=== PATIENT | female | born 1995 | race Caucasian/White ===

== ENCOUNTER 2023-11-12 16:36 | Emergency (ER) | payer OTHER, SELFPAY ==
--- NOTE | 2023-11-12 16:40 | ED_ITS ---
HPI - General Adult General Chief complaint: Fall Stated complaint: Slip and Fall Time Seen by Provider: 11/12/23 16:37 Source: patient and EMS Mode of arrival: EMS Limitations: no limitations History of Present Illness HPI narrative: 28-year-old female here for evaluation of a left ankle injury. States that she was in an area in a dog kennel and slipped and fell and twisted hurting her left ankle. EMS was called. Has been unable to ambulate since the event. Obvious deformity. Was placed in a air splint. Was given pain medicine prior to arrival. Related Data Previous Rx's Medication Instructions Recorded hydrocodone 5 mg-acetaminophen 325 1 tab PO Q4-6H PRN pain #20 tabs 11/12/23 mg tablet hydrocodone 5 mg-acetaminophen 325 1 tab PO Q6H PRN pain #20 tabs 11/12/23 mg tablet Allergies Allergy/AdvReac Type Severity Reaction Status Date / Time amoxicillin Allergy Anaphylaxis Verified 11/12/23 16:48 azithromycin [From Zithromax] Allergy Anaphylaxis Verified 11/12/23 16:48 clavulanic acid Allergy Anaphylaxis Verified 11/12/23 16:49 [From Augmentin] Penicillins Allergy Anaphylaxis Verified 11/12/23 16:48 Review of Systems Musculoskeletal Musculoskeletal: Reports system reviewed and no additional complaints, except as documented Integumentary/Breasts Skin/Breast: Reports system reviewed and no additional complaints, except as documented Neurologic Neurologic: Reports system reviewed and no additional complaints, except as documented Patient History Social History Smoking Status: Former smoker Exam Initial Vital Signs Initial Vital Signs: Vital Signs Temperature 98.3 F 11/12/23 16:42 Pulse Rate 75 11/12/23 16:42 Respiratory Rate 18 11/12/23 16:42 Blood Pressure 139/100 H 11/12/23 16:42 Pulse Oximetry 99 11/12/23 16:42 Oxygen Delivery Method Room Air 11/12/23 16:42 Cardio Pulses: dorsalis pedis present on the left Skin Other: Small abrasion on the medial aspect of the medial malleolus Neuro Sensory Exam: no sensory deficits noted Extrem Other: Obvious deformity to the left ankle. No proximal fibula tenderness. No calf tenderness. No other injuries from the event. Procedures Orthopedic Splinting/Casting Injury #1: Side: left Lower Extremity Injury Location: ankle Lower Extremity Immobilizer: posterior splint and stirrup splint Other Orthopedic Equipment: crutches Post splinting neuro exam: no change Post splinting vascular exam: no change Placed by: Provider Course Orders Ordered: ED Orders 11/12/23 16:42 XR ankle LT min 3V Stat 11/12/23 17:07 XR ankle LT min 3V Stat Vital Signs Vital signs: Vital Signs - 8 hr 11/12/23 16:42 11/12/23 16:44 11/12/23 17:00 Temperature 98.3 F Pulse Rate 75 74 91 H Respiratory Rate 18 Blood Pressure 139/100 H Pulse Oximetry 99 100 100 Oxygen Delivery Method Room Air 11/12/23 17:01 11/12/23 17:01 Temperature Pulse Rate 90 Respiratory Rate Blood Pressure 174/83 H Pulse Oximetry 100 Oxygen Delivery Method Medical Decision Making Imaging Data Extremity x-ray #1: Radiologist's Impression: PROCEDURE: XR ANKLE LT MIN 3V INDICATIONS: fracture TECHNIQUE: 3 views of the ankle were acquired. COMPARISON: None. FINDINGS: Bones: There is a mildly displaced fracture of the distal fibular shaft. There is widening of the syndesmosis. There is dislocation of the talus posteriorly and laterally in relation to the tibial plafond. No leonor talar dome fracture is seen. There is a prominently displaced avulsion of the distal medial malleolar tip. No definite posterior malleolar fracture is seen. A plantar calcaneal spur is seen. Soft tissues: No tibiotalar joint effusion. Achilles tendon appears normal. IMPRESSION: Ankle dislocation, with the talar dome subluxed posteriorly and laterally in relation to the tibial plafond. There is a distal fibular fracture seen, with widening of the ankle mortise. A prominently displaced medial malleolar avulsion fracture is seen. Extremity x-ray #2: Radiologist's Impression: PROCEDURE: XR ANKLE LT MIN 3V INDICATIONS: Postreduction/splint placement TECHNIQUE: 3 views of the ankle were acquired. COMPARISON: [facility], , XR ANKLE LT MIN 3V, 11/12/2023, 16:41. FINDINGS: Bones: There is improved anatomic alignment on this post reduction study. Soft tissues: Soft tissue swelling is seen. The overlying casting material limits evaluation of fine detail. IMPRESSION: Improved anatomic alignment is seen on this post reduction examination. MDM Narrative Medical decision making narrative: Ankle fracture as described above. Patient is neurovascularly intact. Splint placed as described. Discharged home with instructions and follow-up with orthopedic surgery. Discharge Plan Departure Patient Disposition: Home Clinical Impression: Ankle fracture, left Instructions: How to Use Crutches, DI for Ankle Fracture, How to Take Care of Your Splint Activity Restrictions/Additional Instructions: The splint that was placed today needs to be treated like a cast. No walking on your left leg. Use the crutches. Use the pain medication as needed. You are going to need follow-up with orthopedic surgery. You can contact them with the number provided below at the beginning of next week. Return to the emergency department for new or worsening symptoms. Prescriptions: New hydrocodone-acetaminophen 5-325 mg tablet 1 tab PO Q6H PRN (Reason: pain) Qty: 20 0RF hydrocodone-acetaminophen 5-325 mg tablet 1 tab PO Q4-6H PRN (Reason: pain) Qty: 20 0RF Referrals: Jennifer David MD [Physician] - Stand Alone Forms: Patient Portal/API
[2023-11-12 16:42] VITALS: BP 139/100; PULSE 75; RESP 18; TEMP 36.8; O2SAT 99; BMI 33.3
[2023-11-12 16:44] VITALS: PULSE 74; O2SAT 100
[2023-11-12 17:00] VITALS: PULSE 91; O2SAT 100
[2023-11-12 17:01] VITALS: BP 174/83; PULSE 90; O2SAT 100
--- NOTE | 2023-11-12 17:07 | DI.RAD.S_ITS ---
PROCEDURE: XR ANKLE LT MIN 3V INDICATIONS: Postreduction/splint placement TECHNIQUE: 3 views of the ankle were acquired. COMPARISON: [facility], CR, XR ANKLE LT MIN 3V, 11/12/2023, 16:41. FINDINGS: Bones: There is improved anatomic alignment on this post reduction study. Soft tissues: Soft tissue swelling is seen. The overlying casting material limits evaluation of fine detail. IMPRESSION: Improved anatomic alignment is seen on this post reduction examination. Dictated by: Tyrone Abernathy M.D. on 11/12/2023 at 16:30 Approved by: Tyrone Abernathy M.D. on 11/12/2023 at 16:31
[2023-11-12 17:30] VITALS: PULSE 88; O2SAT 100
[2023-11-12 17:31] VITALS: BP 165/82; PULSE 88; O2SAT 100
== END 2023-11-12 17:38 | disposition home or self-care (01) ==
PROVIDERS: Emergency Provider Emergency Medicine; PCP Physician Assistant
DX: S82.52XA Displaced fracture of medial malleolus of left tibia, initial encounter for closed fracture (principal); W01.0XXA Fall on same level from slipping, tripping and stumbling without subsequent striking against object, initial encounter
CPT/HCPCS: 29515; 73610; 99283

== ENCOUNTER 2025-04-22 11:17 | Emergency (ER) | payer SELFPAY ==
--- OUTSIDE RECORDS SUMMARY | 2025-04-22 11:21 | XMS_ITS | Encounter Summary ---
Author Organization [facility] Address [address] [place] [address] Care Team Providers Care Palliative Medicine Physician Name Role Phone Pcp, None Selected Primary Care Provider Unavail able Encounter Details Date Type Department Care Team (Late st Contact Info) Description 02/26/2025 Case/Admission [facility] [address] [place] [phone] Amaris Cortes MA Social History Tobacco Use Types Packs/Day Years Used Date Smoking Tobacco: Former Cigarettes 0.3 4 Smokeless Tobacco: Never Alcohol Use Standard Drinks/Week Comments Yes 5 (1 standard drink = 0.6 oz pur e alcohol) Comments Unknown Sex and Gender Information Value Date Recorded Sex Assigned at Not on file Legal Sex Female 10:01 AM PDT Gender Identity Not on file Sexual Orientation Not on file documented as of this encounter Functional Status * STOP-BANG Questionnaire - requires Ht & Wt for calculation Question Answer Date of Assessment Author Do you snore loudly? 0 02/26/2025 3:33 PM P Amaris Porter MA Do you often feel tired or fatigued after your sleep? 0 02/26/2025 3:33 PM Amaris Coyne MA Has anyone ever observed you stop breathing in your sleep? 0 02/26/2025 3:33 PM Amaris Brown MA Do you have or are you being treated for high blood pressure? 0 02/26/2025 3:33 PM Maura Bird MA Is BMI greater than 35 kg/m2? 0=No 02/26/2025 3:33 PM mAaris Bird MA Age older than 50 years old? 0=No 02/26/2025 3 :33 PM Amaris Bird MA Neck Circumference Greater T [place] (17 inches Male) or (16 inches Female) 0 02/26/2025 3:33 PM Maura Bird MA Gender - Male 0=No 02/26/2025 3:33 PM Amaris Farah MA STOP-Bang Total Score 0 02/26/2025 3:33 PM Amaris Bird MA Recent BMI (Calculated) 35 02/26/2025 3:33 P M Amaris Bird MA documented as of this encounter Plan of Treatment Upcoming Encounters Date Type Department Care Team (Late st Contact Info) Description 05/23/2025 10:40 AM PST Office Visit [facility] [address] [place] [phone] Ivana Mead MD [address] [place] [phone] documented as of this encounter Visit Diagnoses Not on filedocumented in this encounter Care Teams Palliative Medicine Physician Relationship Specialty Start Date End Date Pcp, None Selected PCP - General 02/26/25 documented as of this encounter
[2025-04-22 11:26] VITALS: BP 183/87; PULSE 65; RESP 18; TEMP 36.6; O2SAT 100; BMI 35.3
--- NOTE | 2025-04-22 11:38 | DI.CT.S_ITS ---
PROCEDURE: CT ABDOMEN PELVIS W CON INDICATIONS: periumbilical pain, N/V, appy? TECHNIQUE: After the administration of intravenous contrast, axial sections acquired from the lung bases to the pubic symphysis. Coronal and sagittal reformats were performed. For radiation dose reduction, the following was used: automated exposure control, adjustment of mA and/or kV according to patient size. COMPARISON: None. FINDINGS: Image quality: Diagnostic. Lower Chest: No significant findings. ABDOMEN: Liver: No solid mass. Gallbladder: No radiopaque gallstones or wall thickening. Biliary ducts: No biliary dilation. Pancreas: No ductal dilation. Spleen: Size is within normal limits. Adrenal Glands: No adrenal nodules. Kidneys and Ureters: No hydronephrosis. No solid mass. No complex renal cystic lesion which requires follow up. Stomach and Bowel: Normal colonic caliber, without significant wall thickening. Appendix is not definitively visualized, however no secondary signs of acute infection in the right lower quadrant to suggest acute appendicitis. Peritoneum: No abnormal intraperitoneal fluid. No free air. Ventral Wall: No significant ventral hernia. Abdominal Nodes: No retroperitoneal or mesenteric adenopathy by size criteria. Vessels: Aorta and inferior vena cava are normal in size. PELVIS: Pelvic Organs: Unremarkable. Bladder: No bladder wall thickening, accounting for underdistention. Pelvic Nodes: No enlarged lymph nodes. Miscellaneous: No inguinal hernias are seen. Bones: No aggressive osseous abnormality. IMPRESSION: No acute abdominopelvic process. Approved by: Shawnee Galvez M.D.,Ph.D. on 04/22/2025 at 13:20
--- NOTE | 2025-04-22 11:43 | ED.ABDPAIN ---
HPI - Abdominal Pain <Siri Cordero PA-C - Last Filed: 04/22/25 19:18> General Chief Complaint: Abdominal Pain Stated Complaint: Vomiting for 2 days Time Seen by Provider: 04/22/25 11:33 Source: patient Mode of arrival: Ambulatory History of Present Illness HPI narrative: Ms. Ross is a pleasant 21-year-old female with a past medical history of left ankle fracture s/p surgical repair 7 weeks ago who presents to the emergency department for periumbilical abdominal pain, nausea, vomiting x2 days. Patient states that she has burning pain around her belly button that spreads to the right lower quadrant and she has had persistent nausea and vomiting over the last 2 days. Eating or drinking makes it worse. She did not have any bowel movements for last 2 days but then this morning she did have a small soft bowel movement. Reports she does typically smoke marijuana however has been unable to do this in the last 2 days because of her nausea and vomiting as it made it much worse. She denies any prior abdominal surgery. Denies fevers but reports chills. Denies chest pain, shortness of breath, cough, sore light, flu-like symptoms. Denies eating any abnormal foods or any sick contacts. She has stopped taking oxycodone for her left ankle 3 days ago. Related Data Previous Rx's ?Medication ?Instructions ?Recorded hydrocodone 5 mg-acetaminophen 325 1 tab PO Q4-6H PRN pain #20 tabs 07/20/24 mg tablet hydrocodone 5 mg-acetaminophen 325 1 tab PO Q6H PRN pain #20 tabs 07/20/24 mg tablet ondansetron 4 mg disintegrating 4 mg PO Q8H PRN nausea and 04/22/25 tablet vomiting #15 tabs promethazine 12.5 mg rectal 12.5 mg FL TID PRN nausea and 04/22/25 suppository vomiting #12 ea Allergies Allergy/AdvReac Type Severity Reaction Status Date / Time amoxicillin Allergy Anaphylaxis Verified 04/22/25 11:26 azithromycin (From Zithromax) Allergy Anaphylaxis Verified 04/22/25 11:26 bee venom protein (honey bee) Allergy Anaphylaxis Verified 04/22/25 11:26 clavulanic acid (From Allergy Anaphylaxis Verified 04/22/25 11:26 Augmentin) Penicillins Allergy Anaphylaxis Verified 04/22/25 11:26 shellfish derived Allergy Anaphylaxis Verified 04/22/25 11:26 Review of Systems <Siri Cordero PA-C - Last Filed: 04/22/25 19:18> Review of Systems ROS Unobtainable: All systems reviewed & are unremarkable except as noted in HPI and below Patient History <Siri Cordeor PA-C - Last Filed: 04/22/25 19:18> Social History Smoking Status: Former smoker Smoking Status: Former smoker alcohol intake frequency: a few times a week Exam <Siri Cordero PA-C - Last Filed: 04/22/25 19:18> Narrative Exam Narrative: GENERAL: 29 year old patient appears stated age. Well-developed patient, in mild distress 2/2 abd pain HEAD: Atraumatic. Normocephalic. EYES: No scleral icterus. No injection or drainage. NECK: Trachea midline. Cervical ROM intact. CARDIOVASCULAR: Regular rate and rhythm. RESPIRATORY: ?Nonlabored respirations. ?Speaking in clear, full sentences. ?Clear to auscultation. Breath sounds equal bilaterally. No wheezes, rales, or rhonchi. ? GASTROINTESTINAL: Abdomen soft, nondistended. Tenderness to palpation of the periumbilical region and right lower quadrant. No rebound or guarding. Bowel sounds are present. EXTREMITIES: Left lower extremity orthopedic boot in place BACK: No CVA tenderness bilaterally NEURO: AOx3. ?Clear speech. ?Moves all 4 extremities appropriately. SKIN: No rash or erythema of visible areas Initial Vital Signs Initial Vital Signs: Vital Signs Temperature 97.8 F 04/22/25 11:26 Pulse Rate 65 04/22/25 11:26 Respiratory Rate 18 04/22/25 11:26 Blood Pressure 183/87 H 04/22/25 11:26 Pulse Oximetry 100 04/22/25 11:26 Oxygen Delivery Method Room Air 04/22/25 11:26 <Cassy Felipe DO - Last Filed: 04/23/25 09:16> Initial Vital Signs Initial Vital Signs: Vital Signs Temperature 97.8 F 04/22/25 11:26 Pulse Rate 65 04/22/25 11:26 Respiratory Rate 18 04/22/25 11:26 Blood Pressure 183/87 H 04/22/25 11:26 Pulse Oximetry 100 04/22/25 11:26 Oxygen Delivery Method Room Air 04/22/25 11:26 Course <Siri Cordero PA-C - Last Filed: 04/22/25 19:18> Orders Ordered: Discontinued Medications Sodium Chloride (Normal Saline 0.9%) 1,000 mls @ 1,000 mls/hr IV BOLUS ONE Stop: 04/22/25 12:37 Last Infusion: 04/22/25 13:04 Dose: Infused Documented By: Admin: 04/22/25 11:49 Dose: 1,000 mls/hr Documented By: ROBERT Sodium Chloride (Normal Saline 0.9%) 500 mls @ 1,000 mls/hr IV BOLUS ONE Stop: 04/22/25 14:00 Last Admin: 04/22/25 13:39 Dose: Not Given Documented By: ROBERT Sodium Chloride (Normal Saline 0.9%) 1,000 mls @ 1,000 mls/hr IV BOLUS ONE Stop: 04/22/25 14:42 Last Infusion: 04/22/25 14:49 Dose: Infused Documented By: Admin: 04/22/25 13:49 Dose: 1,000 mls/hr Documented By: MARCUS Morphine Sulfate (Morphine 4 Mg/Ml Inj) 4 mg IV NOW ONE Stop: 04/22/25 11:39 Last Admin: 04/22/25 11:49 Dose: 4 mg Documented By: ROBERT Morphine Sulfate (Morphine 2 Mg/Ml Inj) 4 mg IV Q2HR PRN PRN Reason: Pain, Moderate (4-6) Last Admin: 04/22/25 13:49 Dose: 4 mg Documented By: MARCUS Ondansetron HCl (Ondansetron 4 Mg/2 Ml Inj) 4 mg IV NOW PRN PRN Reason: Nausea And Vomiting Ondansetron HCl (Ondansetron 4 Mg Odt) 4 mg PO NOW PRN PRN Reason: Nausea And Vomiting Ondansetron HCl (Ondansetron 4 Mg/2 Ml Inj) 4 mg IV NOW ONE Stop: 04/22/25 11:39 Last Admin: 04/22/25 11:49 Dose: 4 mg Documented By: ROBERT Ondansetron HCl (Ondansetron 4 Mg/2 Ml Inj) 4 mg IV NOW ONE Stop: 04/22/25 13:45 Last Admin: 04/22/25 13:49 Dose: 4 mg Documented By: MARCUS Vital Signs Vital signs: Vital Signs - 8 hr 04/22/25 11:26 04/22/25 12:02 04/22/25 13:02 Temperature 97.8 F Pulse Rate 65 65 59 L Respiratory Rate 18 14 14 Blood Pressure 183/87 H 177/96 H 183/134 H Pulse Oximetry 100 100 100 Oxygen Delivery Method Room Air Room Air Room Air 04/22/25 13:30 Temperature Pulse Rate 68 Respiratory Rate 20 Blood Pressure 166/86 H Pulse Oximetry 100 Oxygen Delivery Method Room Air <Cassy Felipe DO - Last Filed: 04/23/25 09:16> Orders Ordered: Discontinued Medications Sodium Chloride (Normal Saline 0.9%) 1,000 mls @ 1,000 mls/hr IV BOLUS ONE Stop: 04/22/25 12:37 Last Infusion: 04/22/25 13:04 Dose: Infused Documented By: Admin: 04/22/25 11:49 Dose: 1,000 mls/hr Documented By: ROBERT Sodium Chloride (Normal Saline 0.9%) 500 mls @ 1,000 mls/hr IV BOLUS ONE Stop: 04/22/25 14:00 Last Admin: 04/22/25 13:39 Dose: Not Given Documented By: ROBERT Sodium Chloride (Normal Saline 0.9%) 1,000 mls @ 1,000 mls/hr IV BOLUS ONE Stop: 04/22/25 14:42 Last Infusion: 04/22/25 14:49 Dose: Infused Documented By: Admin: 04/22/25 13:49 Dose: 1,000 mls/hr Documented By: MARCUS Morphine Sulfate (Morphine 4 Mg/Ml Inj) 4 mg IV NOW ONE Stop: 04/22/25 11:39 Last Admin: 04/22/25 11:49 Dose: 4 mg Documented By: ROBERT Morphine Sulfate (Morphine 2 Mg/Ml Inj) 4 mg IV Q2HR PRN PRN Reason: Pain, Moderate (4-6) Last Admin: 04/22/25 13:49 Dose: 4 mg Documented By: MARCUS Ondansetron HCl (Ondansetron 4 Mg/2 Ml Inj) 4 mg IV NOW PRN PRN Reason: Nausea And Vomiting Ondansetron HCl (Ondansetron 4 Mg Odt) 4 mg PO NOW PRN PRN Reason: Nausea And Vomiting Ondansetron HCl (Ondansetron 4 Mg/2 Ml Inj) 4 mg IV NOW ONE Stop: 04/22/25 11:39 Last Admin: 04/22/25 11:49 Dose: 4 mg Documented By: ROBERT Ondansetron HCl (Ondansetron 4 Mg/2 Ml Inj) 4 mg IV NOW ONE Stop: 04/22/25 13:45 Last Admin: 04/22/25 13:49 Dose: 4 mg Documented By: MARCUS Vital Signs Vital signs: Vital Signs - 8 hr 04/22/25 11:26 04/22/25 12:02 04/22/25 13:02 Temperature 97.8 F Pulse Rate 65 65 59 L Respiratory Rate 18 14 14 Blood Pressure 183/87 H 177/96 H 183/134 H Pulse Oximetry 100 100 100 Oxygen Delivery Method Room Air Room Air Room Air 04/22/25 13:30 Temperature Pulse Rate 68 Respiratory Rate 20 Blood Pressure 166/86 H Pulse Oximetry 100 Oxygen Delivery Method Room Air MDM - Abdominal Pain <Siri Cordero PA-C - Last Filed: 04/22/25 19:18> Medical Records Attestation: I reviewed the patient's medical records. Lab Data 04/22/25 11:30 04/22/25 11:30 Labs: Lab Results 04/22/25 04/22/25 Range/Units 11:30 13:29 WBC 12.8 H (4.5-11.0) X10^3/uL RBC 4.63 (4.0-5.2) X10^6/uL Hgb 13.9 (12.0-16.0) g/dL Hct 40.1 (36-46) % MCV 86.7 (80-100) fL MCH 30.0 (26-34) PG MCHC 34.7 (30-36) % RDW 13.1 (11.6-14.8) % Plt Count 361 (150-400) X10^3/uL Neut % (Auto) 89.9 H (50-75) % Lymph % (Auto) 6.8 L (25-40) % Hamilton % (Auto) 3.0 (3-14) % Eos % (Auto) 0.0 L (2-4) % Baso % (Auto) 0.3 (0-2) % Neut # (Auto) 23134 H (2801-3139) /uL Lymph # (Auto) 900 L (6098-4142) /uL Hamilton # (Auto) 400 (0-900) /uL Eos # (Auto) 0 (0-450) /uL Baso # (Auto) 0 (0-100) /uL Sodium 138 (137-145) mmol/L Potassium 3.4 (3.4-5.1) mmol/L Chloride 101 (98-107) mmol/L Carbon Dioxide 21 L (22-32) mmol/L BUN 13 (7-17) mg/dL Creatinine 0.60 (0.52-1.04) mg/dL Estimated GFR > 60 (>60) mL/min BUN/Creatinine Ratio 21.7 (6-22) Glucose 114 H (70-99) mg/dL Calcium 10.0 (8.4-10.2) mg/dL Total Bilirubin 1.1 (0.2-1.3) mg/dL AST 29 (14-36) IU/L ALT 25 (<35) IU/L Alkaline Phosphatase 73 (38-126) U/L Total Protein 9.3 H (6.3-8.2) g/dL Albumin 5.4 H (3.5-5.0) g/dL Globulin 3.9 (1.7-4.1) g/dL Albumin/Globulin Ratio 1.4 (1.0-2.8) Lipase 53 (23-300) U/L Serum , Qual Negative (Negative) Urine RBC None seen (0-5/HPF) Urine WBC None seen (0-5/HPF) Ur Squamous Epith Cells None seen (0-5/HPF) Urine Bacteria None seen (None) Ur Culture Indicated? Cult not indicated Vol Urine Centrifuged 10ml (spun) Point of care testing: Urine Dip Bedside Urine Glucose Negative Bedside Urine Bilirubin - Negative Bedside Urine Ketone +++ 80 Urine Specific Orange 1.005 Bedside Urine Occult Blood - Negative Bedside Urine pH 8.5 Bedside Urine Protein +/- 15 Bedside Urine Urobilinogen - Negative Bedside Urine Nitrite - Negative Bedside Urine Leukocytes - Negative Esterase Imaging Data CT scan - abdomen/pelvis: Radiologist's Impression: PROCEDURE: CT ABDOMEN PELVIS W CON INDICATIONS: periumbilical pain, N/V, appy? TECHNIQUE: After the administration of intravenous contrast, axial sections acquired from the lung bases to the pubic symphysis. Coronal and sagittal reformats were performed. For radiation dose reduction, the following was used: automated exposure control, adjustment of mA and/or kV according to patient size. COMPARISON: None. FINDINGS: Image quality: Diagnostic. Lower Chest: No significant findings. ABDOMEN: Liver: No solid mass. Gallbladder: No radiopaque gallstones or wall thickening. Biliary ducts: No biliary dilation. Pancreas: No ductal dilation. Spleen: Size is within normal limits. Adrenal Glands: No adrenal nodules. Kidneys and Ureters: No hydronephrosis. No solid mass. No complex renal cystic lesion which requires follow up. Stomach and Bowel: Normal colonic caliber, without significant wall thickening. Appendix is not definitively visualized, however no secondary signs of acute infection in the right lower quadrant to suggest acute appendicitis. Peritoneum: No abnormal intraperitoneal fluid. No free air. Ventral Wall: No significant ventral hernia. Abdominal Nodes: No retroperitoneal or mesenteric adenopathy by size criteria. Vessels: Aorta and inferior vena cava are normal in size. PELVIS: Pelvic Organs: Unremarkable. Bladder: No bladder wall thickening, accounting for underdistention. Pelvic Nodes: No enlarged lymph nodes. Miscellaneous: No inguinal hernias are seen. Bones: No aggressive osseous abnormality. IMPRESSION: No acute abdominopelvic process. Approved by: Shawnee Galvez M.D.,Ph.D. on 04/22/2025 at 13:20 MDM Narrative Medical decision making narrative: 21-year-old female with a past medical history of left ankle fracture s/p surgical repair 7 weeks ago who presents to the emergency department for periumbilical abdominal pain, nausea, vomiting x2 days. Differential diagnosis includes but is not limited to gastroenteritis, gastritis, colitis, appendicitis, cholecystitis, electrolyte derangement, dehydration, UTI, pyelonephritis, cannabinoid hyperemesis, etc. On exam the patient is in no acute distress, nontoxic appearing, vital signs appropriate except for elevated blood pressure. She is visibly in pain due to her periumbilical abdominal pain and she is tender in this region and the right lower quadrant. Lungs are clear, no rashes, no rebound or guarding, no CVA tenderness. We will treat with IV fluids, Zofran, morphine obtain lab work and CT abdomen and pelvis. Labs reveal negative . Elevation WBC count 12.8 with 89.9% neutrophil predominance. Normal platelets 361. Normal hemoglobin 13.9. Normal sodium 138, potassium lower end of normal 3.4, BUN 13 creatinine 0.60. Glucose 114. Normal AST 29 ALT 25 alkaline phosphatase 73. Lipase 53. Elevation of protein, albumin WBC count suggest element of dehydration. CT reveals no acute abdominopelvic process. Appendix is not definitively visualized however no secondary signs of acute infection in the right lower quadrant to suggest acute appendicitis. Point of care urine does reveal ketones, urinalysis is negative for signs of infection. Patient feeling much better after ED treatment including 2 L of IV fluids, Zofran and morphine. She is tolerating p.o. and ready for DC home. Discussed supportive care including rest, hydration, electrolyte beverages, prescribe Zofran and rectal Phenergan if needed and also discussed strict ER return precautions. Patient and her family verbalized understanding of all information and are agreeable with the plan. She is ambulatory and stable for discharge home, repeat abdominal exam is benign. <Cassy Felipe, - Last Filed: 04/23/25 09:16> Lab Data Labs: Lab Results 04/22/25 04/22/25 Range/Units 11:30 13:29 WBC 12.8 H (4.5-11.0) X10^3/uL RBC 4.63 (4.0-5.2) X10^6/uL Hgb 13.9 (12.0-16.0) g/dL Hct 40.1 (36-46) % MCV 86.7 (80-100) fL MCH 30.0 (26-34) PG MCHC 34.7 (30-36) % RDW 13.1 (11.6-14.8) % Plt Count 361 (150-400) X10^3/uL Neut % (Auto) 89.9 H (50-75) % Lymph % (Auto) 6.8 L (25-40) % Hamilton % (Auto) 3.0 (3-14) % Eos % (Auto) 0.0 L (2-4) % Baso % (Auto) 0.3 (0-2) % Neut # (Auto) 78261 H (3298-3666) /uL Lymph # (Auto) 900 L (6752-9894) /uL Hamilton # (Auto) 400 (0-900) /uL Eos # (Auto) 0 (0-450) /uL Baso # (Auto) 0 (0-100) /uL Sodium 138 (137-145) mmol/L Potassium 3.4 (3.4-5.1) mmol/L Chloride 101 (98-107) mmol/L Carbon Dioxide 21 L (22-32) mmol/L BUN 13 (7-17) mg/dL Creatinine 0.60 (0.52-1.04) mg/dL Estimated GFR > 60 (>60) mL/min BUN/Creatinine Ratio 21.7 (6-22) Glucose 114 H (70-99) mg/dL Calcium 10.0 (8.4-10.2) mg/dL Total Bilirubin 1.1 (0.2-1.3) mg/dL AST 29 (14-36) IU/L ALT 25 (<35) IU/L Alkaline Phosphatase 73 (38-126) U/L Total Protein 9.3 H (6.3-8.2) g/dL Albumin 5.4 H (3.5-5.0) g/dL Globulin 3.9 (1.7-4.1) g/dL Albumin/Globulin Ratio 1.4 (1.0-2.8) Lipase 53 (23-300) U/L Serum , Qual Negative (Negative) Urine RBC None seen (0-5/HPF) Urine WBC None seen (0-5/HPF) Ur Squamous Epith Cells None seen (0-5/HPF) Urine Bacteria None seen (None) Ur Culture Indicated? Cult not indicated Vol Urine Centrifuged 10ml (spun) Point of care testing: Urine Dip Bedside Urine Glucose Negative Bedside Urine Bilirubin - Negative Bedside Urine Ketone +++ 80 Urine Specific Orange 1.005 Bedside Urine Occult Blood - Negative Bedside Urine pH 8.5 Bedside Urine Protein +/- 15 Bedside Urine Urobilinogen - Negative Bedside Urine Nitrite - Negative Bedside Urine Leukocytes - Negative Esterase Discharge Plan Departure Patient Disposition: Home Clinical Impression: Periumbilical abdominal pain, Dehydration Nausea & vomiting Qualifiers: Vomiting type: unspecified Qualified Code(s): R11.2 - Nausea with vomiting, unspecified Instructions: DI for Viral Gastroenteritis -- Adult Activity Restrictions/Additional Instructions: Dear Ms. Ross, Thank you for coming to the emergency department. Today you were evaluated for abdominal pain nausea and vomiting. Your CT scan did not reveal appendicitis or another acute intra-abdominal process. Your lab work did reveal signs of dehydration, and your potassium was at the lower limits of normal so I do recommend that you increase your dietary potassium. You were treated with IV pain medicine, fluids and nausea medicine. Is very important that you use prescribed nausea medication and increase fluids and electrolytes using things such as Gatorade, Pedialyte, liquid IV or other electrolyte supplementation. Eat bland foods at first until your symptoms improve. Please return to the emergency department if you develop any new or worsening symptoms, severe pain, fevers, persistent vomiting or any other concerns. Please follow up with your primary care doctor within the next 2-3 days for ER follow-up. (If you do not have a PCP you can call [phone]. ?to schedule an appointment with an [facility] Primary Care Provider) IF YOU DEVELOP ANY NEW OR WORSENING SYMPTOMS, RETURN TO THE ER! Please read the attached instructions, they highlight more specific treatments and interventions for you at home. Thank you for letting me participate in your care, Siri Cordero PA-C Prescriptions: New ondansetron 4 mg tablet,disintegrating 4 mg PO Q8H PRN (Reason: nausea and vomiting) Qty: 15 0RF promethazine 12.5 mg suppository 12.5 mg FL TID PRN (Reason: nausea and vomiting) Qty: 12 0RF Rx Instructions: do not give 3rd daily dose after evening meal or within 4hr before bed No Action hydrocodone-acetaminophen 5-325 mg tablet 1 tab PO Q6H PRN (Reason: pain) Qty: 20 0RF hydrocodone-acetaminophen 5-325 mg tablet 1 tab PO Q4-6H PRN (Reason: pain) Qty: 20 0RF Referrals: Kimberly Mayes PA-C [Primary Care Provider, Medical] Stand Alone Forms: Patient Portal/API, Work Release Note ED Sign-out <Cassy Felipe DO - Last Filed: 04/23/25 09:16> Cosign ED Attending Elizabeth Attestation: I was available for consultation.
[2025-04-22 11:46] LABS: Add Manual Diff / Slide Review NO; Hematocrit 40.1 % (36-46); Hemoglobin 13.9 g/dL (12.0-16.0); Lymphocytes Absolute Auto 900 /uL (1100-4500); Mean Corpuscular HGB Conc 34.7 % (30-36); Mean Corpuscular Hemoglobin 30.0 PG (26-34); Mean Corpuscular Volume 86.7 fL (80-100); Platelet Count 361 X10^3/uL (150-400)
[2025-04-22] MEDS: MORPHINE 4 MG/ML INJ IV (11:49)
[2025-04-22] MEDS: ONDANSETRON 4 MG/2 ML INJ IV ×2 (11:49→13:49)
[2025-04-22] MEDS: SODIUM CHLORIDE 0.9% 1,000 ML 1000 ML IV ×2 (11:49→13:49)
[2025-04-22 11:58] LABS: Pregnancy Test Serum,Qual Negative (Negative)
[2025-04-22 12:02] VITALS: BP 177/96; PULSE 65; RESP 14; O2SAT 100
[2025-04-22 12:02] LABS: Alanine Aminotransferase 25 IU/L (<35); Albumin 5.4 g/dL (3.5-5.0); Albumin Globulin Ratio 1.4 (1.0-2.8); Alkaline Phosphatase 73 U/L (38-126); Blood Urea Nitrogen 13 mg/dL (7-17); Calcium 10.0 mg/dL (8.4-10.2); Carbon Dioxide 21 mmol/L (22-32); Chloride 101 mmol/L (98-107); Estimated Glomerular Filt Rate > 60 mL/min (>60); Globulin 3.9 g/dL (1.7-4.1); Glucose 114 mg/dL (70-99); HEMOLYSIS < 15 (0-50); Lipase 53 U/L (23-300); Sodium 138 mmol/L (137-145); Total Protein 9.3 g/dL (6.3-8.2)
--- NOTE | 2025-04-22 12:03 | PC.NURSE ---
Pt states she has some relief from hot showers. Patient also uses marijuana.
[2025-04-22 12:07] LABS: Potassium 3.4 mmol/L (3.4-5.1)
[2025-04-22 13:02] VITALS: BP 183/134; PULSE 59; RESP 14; O2SAT 100
[2025-04-22 13:30] VITALS: BP 166/86; PULSE 68; RESP 20; O2SAT 100
[2025-04-22] MEDS: MORPHINE 2 MG/ML INJ 4 MG IV (13:49)
[2025-04-22 14:14] LABS: Culture Indicated Urine Cult Not Indicated
== END 2025-04-22 15:43 | disposition home or self-care (01) ==
PROVIDERS: Emergency Medicine; Emergency Provider Physician Assistant; PCP Physician Assistant
DX: R10.33 Periumbilical pain (principal); E86.0 Dehydration; R11.2 Nausea with vomiting, unspecified
CPT/HCPCS: 36415; 74177; 80053; 81003; 81015; 83690; 84703; 85025; 96361; 96374; 96375; 96376; 99284; J2270; J2272; J2405; J7030; Q9967